=== PATIENT | female | born 1985 | race Caucasian/White ===

== ENCOUNTER 2022-12-24 07:51 | Emergency (ER) | payer SELFPAY ==
[2022-12-24] VITALS (18 sets, daily range): BP systolic 119–136; BP diastolic 59–75; PULSE 70–109; RESP 18; TEMP 36.7; O2SAT 95–99
[2022-12-24] MEDS: EPINEPHrine 0.3 MG KIT IM (08:01)
[2022-12-24] MEDS: Famotidine 20 MG TAB 40 MG PO (08:07)
--- NOTE | 2022-12-24 08:37 | ED.GENADUL_ITS ---
Discharge Plan Disposition Patient Disposition: Home Condition: Good Discharge Details Clinical Impression: Anaphylactic reaction Primary Care Provider: Unknown,Unknown ED Provider: Hillary Rodriguez Home Meds and New Rx's Prescriptions: New epinephrine [Auvi-Q] 0.3 mg/0.3 mL auto-injector 0.3 mg IM Q5-15M PRNQty: 2 0RF Rx Instructions: do not exceed 3 doses per episode diphenhydramine HCl [Benadryl Allergy] 25 mg tablet 50 mg PO Q4H PRNQty: 10 0RF famotidine 20 mg tablet 40 mg PO QHS Qty: 1 0RF Discharge Instructions Instructions: Anaphylaxis (ED) Additional Instructions: Call your primary care doctor today to schedule an appointment within three days to followup on your visit here. Take 50mg of Benadryl every 4 hours for the next 24 hours. Take a second dose of famotidine this evening before bed. If your symptoms return, use your EpiPen. If you use your epipen you must come to the emergency department afterwards for evaluation. Return to the emergency department for new or worsening symptoms. Medical Decision Making 37yo previously healthy female presenting with possible anaphylaxis; unclear precipitant, no prior allergies. Onset at 0500 of lip and intra-oral swelling, shortness of breath, and nausea/vomiting. Unrelieved by 50mg of benadyrl at home. Slightly tachycardiac, vital signs otherwise reassuring, no signficant respiratory distress on arrival. Symptoms consistent with anaphylaxis and she does have some visible oral swelling and expiratory wheeze. Given IM epinephrine here as well as PO famotidine. On reassessment swelling improving, no difficulty breathing, no further vomiting. Observed for 4 hours in the ED and remains stable with no recurrence of symptoms. Normal vital signs. EKG NSR, no acute ischemic findings. Discharged home with prescription for epi-pen, advised benadryl and famotidine for the next 24 hours. Instructed to go directly to pharmacy to turkey picker medication. Discharge instructions including return precautions were reviewed with patient who verbalized understanding. All questions were answered and they are in full agreement with the plan. HPI General Mode of arrival: ambulatory . Date/Time Provider Initiated Documentation: 12/24/22 07:56 . Limitations to Documentation: no limitations . Information obtained by: patient . HPI Narrative: 37yo previously healthy female presenting for concern for allergic reaction. Unclear precipitant, no prior allergies. Around 0500 this morning noted lip swelling, felt like her throat was becoming tight, nausea/vomiting, and shortness of breath. Took 50mg of Benadryl without improvement. Currently feels some shortness of breath and nausea. No difficulty with secretions. No abdominal pain, chest pain, or urticaria. She is otherwise in her usual state of health. Related Data Home Medications Medication Instructions Recorded Confirmed diphenhydramine HCl 25 mg tablet 50 mg PO Q4H PRN #10 tabs 12/24/22 (Benadryl Allergy) epinephrine 0.3 mg/0.3 mL 0.3 mg (0.3 mL) IM Q5-15M PRN #2 ea 12/24/22 injection, auto-injector (Auvi-Q) famotidine 20 mg tablet 40 mg PO QHS #1 tab 12/24/22 Previous Rx's Medication Instructions Recorded diphenhydramine HCl 25 mg tablet 50 mg PO Q4H PRN #10 tabs 12/24/22 (Benadryl Allergy) epinephrine 0.3 mg/0.3 mL 0.3 mg (0.3 mL) IM Q5-15M PRN #2 ea 12/24/22 injection, auto-injector (Auvi-Q) famotidine 20 mg tablet 40 mg PO QHS #1 tab 12/24/22 Allergies Allergy/AdvReac Type Severity Reaction Status Date / Time No Known Allergies Allergy Unverified 12/24/22 08:01 General Stated Complaint: Allergic ZEKE: 2 Review of Systems Narrative: see [facility] PFSH All Active Problems (Updated 12/24/22 @ 10:25 by Hillary Rodriguez MD) Anaphylactic reaction (Acute) Social History Smoking/Tobacco Use Status: Current-Occasional Tobacco Type: cigarettes Smoking risk assessment performed?: Yes Alcohol Intake: current Alcohol Intake frequency: a few times a week Alcohol type: hard liquor Substance use type: does not use Housing: house Do you feel safe at home: Yes Do you feel safe in your relationship?: No Exam Narrative Exam Narrative: General: Alert, well appearing, well nourished, in no acute distress. Head: Normocephalic, atraumatic Neck: Trachea midline, Neck supple. ENT: MMM. No oropharygeal lesions or exudate. Moderate lip swelling, no evident swelling of tongue. Cardiac: Slightly tachycardiac, regular, no murmurs appreciated Resp: No respiratory distress. Slight expiratory wheeze bilaterally. Abd: Soft, non-distended, nontender : No suprapubic tenderness. Extremities: No deformities. No peripheral edema. Neurologic: GCS 15. Moves all extremities freely against gravity Course Vital Signs Vital signs: Vital Signs Temperature 36.7 C 12/24/22 07:56 Pulse 109 H 12/24/22 07:56 Respiratory Rate 18 12/24/22 07:56 Blood Pressure 136/75 12/24/22 07:56 Pulse Oximetry 99 12/24/22 07:56 Temperature 36.7 C 12/24/22 07:56 Pulse 109 H 12/24/22 07:56 Respiratory Rate 18 12/24/22 07:56 Respiratory Effort Non-Labored, Short of Breath 12/24/22 08:02 Respiratory Pattern Normal 12/24/22 08:02 Blood Pressure 136/75 12/24/22 07:56 Pulse Oximetry 99 12/24/22 07:56 Pain Level 4 12/24/22 07:56 PAWSS Have you Been Recently Intoxicated or Drunk Within the Last 30 days?: No Have you Ever Experienced Previous Episodes of Alcohol Withdrawal?: No Have you ever Experienced Withdrawal Seizures?: No Have you ever Experienced Delirium Tremens(DT)s?: No Have you ever undergone Alcohol Rehabilitation Treatment (i.e, inpt ot outpatient treatment programs)?: No Have you ever Experienced Blackouts?: No Have you ever Combined Alcohol with other Downers within the last 90 days?: No Have you ever Combined Alcohol with any other Substance of Abuse during the last 90 days?: No Positive Blood Alcohol level on Presentation? [PCS.BAL]: No Evidence of Increased Autonomic Activity (i.e. HR>120, tremor, sweating, agitation, nausea)?: No Result: 0
--- NOTE | 2022-12-24 10:15 | RT.EKG_ITS ---
APPROVED REPORT Exam: Resting ECG Reason for Exam: tachycardia Patient Location: E HR:74 bpm ECG Measurements Heart Rate 74 AXIS [place] 137 P 62 QRSd 78 QRS 45 QT 369 T 21 QTc 411 Conclusion Sinus rhythm..V-rate 60- [address]. [address] segment or T wave abnormalities to suggest occlusive IA
== END 2022-12-24 12:25 | disposition home or self-care (01) ==
PROVIDERS: Emergency Provider Student in an Organized Health Care Education/Training Program
DX: R06.02 Shortness of breath (principal); R00.0 Tachycardia, unspecified; T78.2XXA Anaphylactic shock, unspecified, initial encounter; R11.2 Nausea with vomiting, unspecified
CPT/HCPCS: 93005; 96372; 99284; 93010; J0171